=== PATIENT | male | born 1990 | race American Indian/Alaskan Native ===

== ENCOUNTER 2025-03-01 10:12 | Outpatient (CLI) | payer OTHER ==
--- NOTE | 2025-03-04 10:11 | RADIOLOGY REPORT ---
PROCEDURE: MR MRI LUMBAR SPINE INDICATION: LOW BACK PAIN Exam Date: 03/01/2025 10:30 AM COMPARISON: MR L-SPINE W/O IV CONTRAST on DOS: 09/17/24, XR L-SPINE 3 OR LESS VIEWS on DOS: 05/08/16 TECHNIQUE: MRI lumbar spine without intravenous contrast. FINDINGS: Multilevel disc degeneration. Alignment: No spondylolisthesis identified. Vertebrae: Vertebral body height is well maintained without evidence of a recent compression fracture. Conus: Conus medullaris terminates at the L1 level. Following levels detailed below: T12-L1: The disc configuration is normal. No spinal canal or neural foraminal stenosis. Facet arthrosis. L1-2: The disc configuration is normal. No spinal canal stenosis. Mild left foraminal stenosis. The facet joints are normal. L2-3: The disc configuration is normal. No spinal canal or neural foraminal stenosis. The facet joints are normal. L3-4: The disc configuration is normal. No spinal canal or neural foraminal stenosis. The facet joints are normal. L4-5: Disc desiccation. Disc bulge with superimposed right foraminal disc protrusion measured 5.25 mm in radial dimension. Mild spinal canal stenosis. Mild right and severe left lateral recess stenosis with left descending L5 nerve root compression. Mild right and moderate left foraminal stenosis. Facet arthrosis. L5-S1: Transitional level. Disc desiccation and 4 mm disc bulge. Severe left lateral recess stenosis with left descending S1 nerve root compression from bulge. Mild right and moderate left foraminal stenosis. Facet arthrosis. IMPRESSION: Multilevel disc degeneration. Multilevel lateral recess stenosis, most pronounced and severe at L4-L5 with left descending L5 nerve root compression. Multilevel foraminal stenosis, most pronounced and moderate at L4-L5. Mild spinal canal stenosis at L4-L5 level.
== END 2025-03-01 23:59 | disposition home or self-care (01) ==
LOC: MRI02 10:12
PROVIDERS: ATTEND Family Medicine
DX: M51.379 Other intervertebral disc degeneration, lumbosacral region without mention of lumbar back pain or lower extremity pain (principal); M54.50 Low back pain, unspecified; M48.07 Spinal stenosis, lumbosacral region; M47.816 Spondylosis without myelopathy or radiculopathy, lumbar region
CPT/HCPCS: 72148